=== PATIENT | male | born 1965 | race Hispanic/Latino ===

== ENCOUNTER 2018-05-13 03:13 | Emergency (ER) | payer OTHER ==
[2018-05-13] MEDS ORDERED: ANTIVERT PO ONE (04:39)
[2018-05-13] MEDS ORDERED: ZOFRAN IV ONE (04:39)
--- NOTE | 2018-05-13 05:37 | Cat Scan Report ---
FINAL REPORT PROCEDURE: CT HEAD/BRAIN WO CON TECHNIQUE: Computerized tomography of the head was performed without contrast material. HISTORY: dizziness nausea and vomiting COMPARISON: No prior studies are available for comparison. FINDINGS: Skull and scalp: Normal. Paranasal sinuses: Normal. Ventricles and subarachnoid spaces: Normal. Cerebrum: No evidence of hemorrhage, acute infarction or mass . Cerebellum and brainstem: No evidence of hemorrhage, acute infarction or mass. Vasculature: Normal. Comments: None. IMPRESSION: Normal Examination
--- NOTE | 2018-05-13 05:39 | Cat Scan Report ---
FINAL REPORT PROCEDURE: CT ABDOMEN PELVIS WO CON TECHNIQUE: Computerized axial tomography of the abdomen and pelvis was performed without intravenous contrast. This study is performed without intravascular contrast material and its sensitivity for ab dominal and pelvic pathology, including neoplasms, inflammation, abscess, free fluid, thrombosis, art erial dissection and infarction, is reduced compared with a contrast enhanced study. HISTORY: left flank pain, nausea and vomiting COMPARISON: No prior studies are available for comparison. FINDINGS: Visualized lower thorax: No significant abnormality. Liver: Normal size and attenuation. Spleen: Normal size and attenuation. Gallbladder and biliary system: Normal. Pancreas: Normal. Adrenals: Normal. Kidneys: There is a 4 millimeter stone in the proximal left ureter causing moderate left hydronephros is.. GI tract: There is no bowel obstruction, colitis or enteritis. The appendix is normal.. Lymph nodes and mesentery: Normal. Vasculature: Normal. Bladder: Normal. Reproductive organs: Normal. Peritoneum: There is no ascites, free air, abscess or adenopathy.. Musculoskeletal structures: No significant abnormality. Other: None. IMPRESSION: There is a 4 millimeter stone in the proximal left ureter causing moderate left hydronephrosis.. There is no bowel obstruction, colitis or enteritis. The appendix is normal.. There is no ascites, free air, abscess or adenopathy.. .
[2018-05-13 05:42] LABS: Basophils # (Auto) 0.1 K/mm3 (0.0-0.1); Basophils % (Auto) 0.4 % (0.0-1.8); Eosinophils # (Auto) 0.1 K/mm3 (0.0-0.4); Eosinophils % (Auto) 0.7 % (0.0-4.3); Hemoglobin 14.6 gm/dl (11.8-15.2); Lymphocytes # (Auto) 1.7 K/mm3 (1.2-5.4); Lymphocytes % (Auto) 11.9 % (13.4-35.0); Mean Corpuscular HGB Conc 35 % (32-34); Mean Corpuscular Volume 93 fl (84-94); Monocytes # (Auto) 1.1 K/mm3 (0.0-0.8); Monocytes % (Auto) 7.7 % (0.0-7.3); Platelet Count 189 K/mm3 (140-440); Red Blood Count 4.53 M/mm3 (3.65-5.03); Red Cell Distribution Width 13.8 % (13.2-15.2)
[2018-05-13 05:48] LABS: Alanine Aminotransferase 18 units/L (7-56); Albumin 4.5 g/dL (3.9-5); BUN/Creatinine Ratio 15; Blood Urea Nitrogen 15 mg/dL (9-20); Calcium 9.7 mg/dL (8.4-10.2); Hemolysis Index 8
--- NOTE | 2018-05-13 06:37 | Emergency Department Report ---
ED General Adult HPI - General Chief complaint: Dizziness Stated complaint: DIZZY,VOMITING,LEFT SIDE PAIN Time Seen by Provider: 05/13/18 06:36 Source: patient, RN notes reviewed Mode of arrival: Ambulatory Limitations: No Limitations - History of Present Illness Initial comments: Primary care DrWillie: Reynaldo erickson This is a 52-year-old gentleman. Past history, stent, high cholesterol. This is a 52-year-old gentleman who is not known to this provider previously, who presents to the emergency room with a complaint of nontraumatic left-sided flank pain that started at 4:30 PM yesterday evening. The flank pain radiates to the left lower quadrant, is intermittent, and does not have exacerbating or relieving factors. It is accompanied by some episodes of nausea and vomiting, which are nonbloody, nonbilious. Shortly thereafter, patient developed a headache, which is occipital and superior, then global, not sudden or thunderclap in nature, not maximal in intensity, not the most intense headache of his life. He describes nonspecific lightheadedness, but no loss of consciousness. He denies DVT, pulmonary embolus risk factors. Symptoms are intermittent, did not radiate anywhere, and flank pain appears to worsen with palpation. -: Gradual Location: head, abdomen Radiation: abdomen Severity scale (0 -10): 5 Quality: aching Consistency: intermittent Improves with: other Worsens with: other Associated Symptoms: headaches, loss of appetite, malaise, nausea/vomiting, weakness. denies: confusion, chest pain, cough, diaphoresis, fever/chills, rash, seizure, shortness of breath, syncope - Related Data Previous Rx's Medication Instructions Recorded Last Taken Type Acetaminophen [Tylenol Arthritis] 650 mg PO Q6HR PRN #30 tablet.er 05/13/18 Unknown Rx Ibuprofen [Motrin] 600 mg PO Q8H PRN #30 tablet 05/13/18 Unknown Rx Ondansetron [Zofran Odt] 4 mg PO Q8HR PRN #20 tab.rapdis 05/13/18 Unknown Rx Tamsulosin [Flomax] 0.4 mg PO QDAY #30 cap 05/13/18 Unknown Rx oxyCODONE [Roxicodone] 5 mg PO Q6HR PRN #15 tablet 05/13/18 Unknown Rx Allergies Allergy/AdvReac Type Severity Reaction Status Date / Time No Known Allergies Allergy Unverified 05/13/18 03:31 ED Review of Systems ROS: Stated complaint: DIZZY,VOMITING,LEFT SIDE PAIN Other details as noted in HPI Constitutional: malaise. denies: fever Eyes: denies: vision change ENT: denies: epistaxis Respiratory: denies: cough Cardiovascular: denies: chest pain Gastrointestinal: abdominal pain, nausea, vomiting Genitourinary: denies: urgency, dysuria, testicular pain, testicular mass Musculoskeletal: back pain Skin: denies: lesions Neurological: weakness Psychiatric: denies: anxiety ED Past Medical Hx - Past Medical History Hx Hypertension: Yes Hx Heart Attack/AMI: Yes (CAD) Additional medical history: High Cholesterol - Surgical History Hx Coronary Stent: Yes - Social History Smoking Status: Current Every Day Smoker Substance Use Type: Marijuana - Medications Home Medications: Home Medications Medication Instructions Recorded Confirmed Last Taken Type Acetaminophen [Tylenol Arthritis] 650 mg PO Q6HR PRN #30 tablet.er 05/13/18 Unknown Rx Ibuprofen [Motrin] 600 mg PO Q8H PRN #30 tablet 05/13/18 Unknown Rx Ondansetron [Zofran Odt] 4 mg PO Q8HR PRN #20 tab.rapdis 05/13/18 Unknown Rx Tamsulosin [Flomax] 0.4 mg PO QDAY #30 cap 05/13/18 Unknown Rx oxyCODONE [Roxicodone] 5 mg PO Q6HR PRN #15 tablet 05/13/18 Unknown Rx ED Physical Exam - General Limitations: No Limitations General appearance: alert, anxious - Head Head exam: Present: atraumatic, normocephalic - Eye Eye exam: Present: normal appearance, EOMI, other (visual acuity intact to finger counting, color perception, reading at a close distance). Absent: nystagmus - ENT ENT exam: Present: normal exam, normal orophraynx, mucous membranes moist, normal external ear exam - Neck Neck exam: Present: normal inspection, full ROM. Absent: tenderness, meningismus - Respiratory Respiratory exam: Present: normal lung sounds bilaterally. Absent: respiratory distress - Cardiovascular Cardiovascular Exam: Present: regular rate, normal rhythm, normal heart sounds. Absent: bradycardia, tachycardia, irregular rhythm, systolic murmur, diastolic murmur, rubs, gallop - GI/Abdominal GI/Abdominal exam: Present: soft, tenderness (there is left flank tenderness.). Absent: distended, guarding, rebound, rigid, pulsatile mass - Rectal Rectal exam: Present: deferred - Extremities Exam Extremities exam: Present: normal inspection, full ROM, other (2+ pulses noted in the bilateral upper, lower extremities. Compartments soft. No long bony tenderness. The pelvis is stable.). Absent: pedal edema, joint swelling, calf tenderness - Back Exam Back exam: Present: normal inspection, CVA tenderness (L). Absent: full ROM, tenderness, CVA tenderness (R) - Neurological Exam Neurological exam: Present: alert, oriented X3, CN II-XII intact, normal gait (there is no pass pointing. There is a negative pronator drift. There is normal heel to hart.), other (Extraocular movements intact. Tongue midline. No facial droop. Facial sensation intact to light touch in the V1, V2, V3 dis tribution bilaterally. 5 and 5 strength in 4 extremities.. Sensation is intact to light touch in 4 extremities.). Absent: motor sensory deficit - Psychiatric Psychiatric exam: Present: anxious - Skin Skin exam: Present: warm, dry, intact, normal color. Absent: rash ED Course Vital Signs 05/13/18 05/13/18 03:20 06:47 Temperature 97.8 F Pulse Rate 77 63 Respiratory 18 Rate Blood Pressure 151/101 135/77 O2 Sat by Pulse 98 96 Oximetry - Reevaluation(s) Reevaluation #1: 05/13/18 08:21 The patient took out his IV, and walked out of the emergency room without receiving his paperwork, or therapies. I have asked the nurse to contact the patient, and to return to complete his therapies, and to obtain his discharge paperwork. During my initial evaluation, I found the patient to be alert, competent, and ex hibiting decision-making capacity. ED Medical Decision Making - Lab Data Result diagrams: 05/13/18 03:58 05/13/18 03:58 Vital Signs 05/13/18 03:20 Temperature 97.8 F Pulse Rate 77 Respiratory 18 Rate Blood Pressure 151/101 O2 Sat by Pulse 98 Oximetry Lab Results 05/13/18 05/13/18 05/13/18 Range/Units 03:44 03:58 03:58 WBC 14.6 H (4.5-11.0) K/mm3 RBC 4.53 (3.65-5.03) M/mm3 Hgb 14.6 (11.8-15.2) gm/dl Hct 42.0 (35.5-45.6) % MCV 93 (84-94) fl MCH 32 (28-32) pg MCHC 35 H (32-34) % RDW 13.8 (13.2-15.2) % Plt Count 189 (140-440) K/mm3 Lymph % (Auto) 11.9 L (13.4-35.0) % Taylor % (Auto) 7.7 H (0.0-7.3) % Eos % (Auto) 0.7 (0.0-4.3) % Baso % (Auto) 0.4 (0.0-1.8) % Lymph # 1.7 (1.2-5.4) K/mm3 Taylor # 1.1 H (0.0-0.8) K/mm3 Eos # 0.1 (0.0-0.4) K/mm3 Baso # 0.1 (0.0-0.1) K/mm3 Seg Neutrophils % 79.3 H (40.0-70.0) % Seg Neutrophils # 11.6 H (1.8-7.7) K/mm3 Sodium 144 (137-145) mmol/L Potassium 4.2 (3.6-5.0) mmol/L Chloride 104.8 (98-107) mmol/L Carbon Dioxide 28 (22-30) mmol/L Anion Gap 15 mmol/L BUN 15 (9-20) mg/dL Creatinine 1.0 (0.8-1.5) mg/dL Estimated GFR > 60 ml/min BUN/Creatinine Ratio 15 % Glucose 117 H (75-100) mg/dL POC Glucose 119 H (70-105) Calcium 9.7 (8.4-10.2) mg/dL Total Bilirubin 0.30 (0.1-1.2) mg/dL AST 20 (5-40) units/L ALT 18 (7-56) units/L Alkaline Phosphatase 83 (35-129) units/L Troponin T < 0.010 (0.00-0.029) ng/mL Total Protein 6.8 (6.3-8.2) g/dL Albumin 4.5 (3.9-5) g/dL Albumin/Globulin Ratio 2.0 % Vital Signs 05/13/18 05/13/18 03:20 06:47 Temperature 97.8 F Pulse Rate 77 63 Respiratory 18 Rate Blood Pressure 151/101 135/77 O2 Sat by Pulse 98 96 Oximetry - EKG Data -: EKG Interpreted by Mi EKG shows normal: sinus rhythm Rate: bradycardia - EKG Data When compared to previous EKG there are: previous EKG unavailable 05/13/18 08:02 Bradycardic rhythm, 58 bpm, left axis deviation, left ventricular hypertrophy, T-wave inversions inferior leads, abnormal EKG, not having chest pain, not consistent with ST elevation myocardial infarction. - Radiology Data Radiology results: report reviewed, image reviewed Noncontrast CT scan of the brain is negative for acute disease. Referring Physician: JANEEN AGUILERA Patient Name: LUCILA BARAJAS Date of : 1965 Sex: Male Report Date: 2018-05-13 Report Status: [place] [address] Cat Scan Report Signed Patient: LUCILA BARAJAS MR#: [id number] : 1965 Acct:[id number] Age/Sex: 52 / M ADM Date: 05/13/18 Loc: ED Attending Dr: Ordering Physician: JANEEN AGUILERA MD Date of Service: 05/13/18 Procedure(s): CT abdomen pelvis wo con Accession Number(s): [id number] cc: JANEEN AGUILERA MD FINAL REPORT PROCEDURE: CT ABDOMEN PELVIS WO CON TECHNIQUE: Computerized axial tomography of the abdomen and pelvis was performed without intravenous contrast. This study is performed without intravascular contrast material and its sensitivity for abdominal and pelvic pathology, including neoplasms, inflammation, abscess, free fluid, thrombosis, arterial dissection and infarction, is reduced compared with a contrast enhanced study. HISTORY: left flank pain, nausea and vomiting COMPARISON: No prior studies are available for comparison. FINDINGS: Visualized lower thorax: No significant abnormality. Liver: Normal size and attenuation. Spleen: Normal size and attenuation. Gallbladder and biliary system: Normal. Pancreas: Normal. Adrenals: Normal. Kidneys: There is a 4 millimeter stone in the proximal left ureter causing moderate left hydronephrosis.. GI tract: There is no bowel obstruction, colitis or enteritis. The appendix is normal.. Lymph nodes and mesentery: Normal. Vasculature: Normal. Bladder: Normal. Reproductive organs: Normal. Peritoneum: There is no ascites, free air, abscess or adenopathy.. Musculoskeletal structures: No significant abnormality. Other: None. IMPRESSION: There is a 4 millimeter stone in the proximal left ureter causing moderate left hydronephrosis.. There is no bowel obstruction, colitis or enteritis. The appendix is normal.. There is no ascites, free air, abscess or adenopathy.. . Transcribed By: CO Dictated By: CARMEN CONNER MD Electronically Authenticated By: CARMEN CONNER MD Signed Date/Time: 05/13/18 0598 - Medical Decision Making Differential diagnosis, including not limited to: Renal colic, dehydration, orthostasis, vagal event Assessment and plan: 52-year-old gentleman with probable new onset renal colic, no episodes of loss of consciousness, no tachycardia, no hypoxia, no DVT or pulmonary embolus risk factors, low risk by well's criteria with normal neurologic examination. CT scan demonstrates left-sided kidney stone, likely the etiology of the patient's nausea, vomiting, flank pain. Headache likely secondary to nausea, vomiting, possible dehydration. The patient is not having chest pain, however a troponin and EKG were obtained prior to my personal evaluation. Troponin negative, and EKG abnormal. Given the history, physical, and CT scan findings, I think atypical presentation of acute coronary syndrome is very unlikely. In addition, troponin obtained more than 8 hours after symptom onset, and is negative. As per the [employer] clinical policy, myocardial infarction may be ruled out with one set of troponins, cardiac enzymes symptoms present for greater than 8 hours. The patient's pain will be treated supportively and symptomatically, I have discussed the case with [facility] physician, Dr. Stein, who is going to arrange 48 hour follow-up for recheck, and further evaluation of incidental abnormal EKG. Discussed this with the patient, who verbalized understanding. Critical care attestation.: If time is entered above; I have spent that time in minutes in the direct care of this critically ill patient, excluding procedure time. ED Disposition Clinical Impression: Renal colic on left side, Abnormal EKG Disposition: DC-07 LEFT AGAINST MED ADVICE Is pt being admited?: No Does the pt Need Aspirin: No Condition: Undetermined Instructions: Renal Colic (ED) Additional Instructions: Follow up with your [facility] physician within the next 2-3 days. Symptoms coming from left-sided kidney stone. Increased water consumption to 6- 8 cups of water per day. Take the medications as directed, take Flomax medication at night, prior to going to bed. If taking the oxycodone, do not drive, consume alcohol, or make important decisions. Follow-up with your procurement accountant within the [facility] network, or primary care doctor, or the listed procurement accountant within the next month for abnormal EKG. Follow-up with the [facility] urology specialist, or the listed urology specialist, within the next 2 weeks for kidney stone. Return to the emergency room right away with new pain, worsened pain, migration of pain, projectile vomiting, change in mental status, confusion, new, worsening or different symptoms. Prescriptions: Acetaminophen [Tylenol Arthritis] 650 mg PO Q6HR PRN #30 tablet.er PRN Reason: Pain Ibuprofen [Motrin] 600 mg PO Q8H PRN #30 tablet PRN Reason: Pain Ondansetron [Zofran Odt] 4 mg PO Q8HR PRN #20 tab.rapdis PRN Reason: Nausea oxyCODONE [Roxicodone] 5 mg PO Q6HR PRN #15 tablet PRN Reason: Pain Tamsulosin [Flomax] 0.4 mg PO QDAY #30 cap Referrals: [facility] [Provider Group] - as needed [facility] [Provider Group] - as needed
[2018-05-13] MEDS ORDERED: TORADOL IV ONE (06:45)
[2018-05-13] MEDS ORDERED: REGLAN IV ONE (06:45)
[2018-05-13] MEDS ORDERED: SUBLIMAZE IV ONE ×2 (06:45→09:00)
[2018-05-13] MEDS ORDERED: XYLOCAINE CARDIAC IV ONE (06:45)
[2018-05-13 06:53] VITALS: BP 135/77
[2018-05-13 07:17] LABS: Bilirubin,Urine NEG (Negative); Blood,Urine LG (Negative); Color,Urine Yellow (Yellow); Mucus,Urine FEW /HPF; Urobilinogen,Urine < 2.0 mg/dL (<2.0)
[2018-05-13 07:22] LABS: RBC,Urine > 182.0 /HPF (0.0-6.0)
[2018-05-13] MEDS ORDERED: LIDOCAINE 2% IV ONE (09:00)
[2018-05-13] MEDS ORDERED: SODIUM CHLORIDE 0.9% IV ONE (09:00)
== END 2018-05-13 08:18 | disposition left against medical advice (07) ==
LOC: ED 03:13
DX: N23 Unspecified renal colic (principal); R94.31 Abnormal electrocardiogram [ECG] [EKG]; E78.00 Pure hypercholesterolemia, unspecified; I10 Essential (primary) hypertension; F17.200 Nicotine dependence, unspecified, uncomplicated
CPT/HCPCS: 36415; 70450; 74176; 80053; 81001; 82962; 84484; 85025; 93005; 93010; 96374; 99284; J2405; J3010; J1885; J2765